=== PATIENT | female | born 1950 | race Caucasian/White ===

== ENCOUNTER → 2023-07-03 14:56 | Outpatient (CLI) | payer MEDICARE, SELFPAY ==
--- NOTE | 2023-07-03 15:16 | DI.MRI.S_ITS ---
PROCEDURE: MR HIP RT WO CON INDICATIONS: Trochanteric bursitis, right hip TECHNIQUE: Noncontrast coronal T1 spin echo and STIR through the bony pelvis. Coronal and axial T2 fast spin echo with fat saturation, sagittal T1 spin echo, and oblique axial T2 fast spin echo with fat saturation through the hip. COMPARISON: [facility], CR, XR PELVIS WITH LATERAL HIP RIGHT, 02/17/2023, 8:36. FINDINGS: Image quality: Excellent. Bones and joints: Bone marrow of the pelvic ring and proximal femurs show normal signal throughout. No intraosseous lesions or fractures. No avascular necrosis of the femoral heads. Degenerative disc disease and facet hypertrophy are seen in the included lumbar spine. Tendons and ligaments: [id number] distal right gluteus medius and minimus tendinosis and low-grade partial tearing at the distal insertion. Trace trochanteric and sub gluteal bursal effusions. The proximal iliotibial band appears intact. The iliopsoas tendon appears intact, without adjacent bursal fluid collections. The origin of the hamstring tendon is intact at the ischial tuberosity. The direct and indirect heads of the rectus femoris muscle origin appear intact. Labrum and cartilage: Mild diffuse labral degeneration. There is chronic tearing of the anterosuperior to superior labrum. Mild grade 2 cartilage irregularity in the superior aspect of the right hip. No significant joint effusion. There is normal morphology of the femoral head and the acetabulum. Soft tissues: Visualized muscles demonstrate normal bulk and internal signal. Quadratus femoris muscle demonstrates no internal edema to suggest ischiofemoral impingement. The proximal sciatic neurovascular bundle appears intact. Multiple diverticula are seen in the colon. Status post hysterectomy. No acute pelvic abnormality. IMPRESSION: 1. Low-grade partial tearing of the distal right gluteus minimus tendon at its insertion onto the greater trochanter superimposed on gluteus medius and minimus tendinosis. Small trochanteric and sub gluteal bursal effusions or mild bursitis. 2. 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 Labral degeneration and chronic degenerative tearing. 3. Degenerative changes are seen in the included lumbar spine. 4. Colonic diverticulosis. Approved by: Lopez Govea M.D. on 07/05/2023 at 11:12
== END ==
PROVIDERS: Referring Provider Orthopaedic Surgery; Visit Provider Orthopaedic Surgery
DX: M70.61 Trochanteric bursitis, right hip (principal); S76.011A Strain of muscle, fascia and tendon of right hip, initial encounter; M94.251 Chondromalacia, right hip; K57.90 Diverticulosis of intestine, part unspecified, without perforation or abscess without bleeding
CPT/HCPCS: 73721